=== PATIENT | male | born 1975 ===

== ENCOUNTER 2016-11-17 11:45 | Inpatient (IN) | payer OTHER ==
--- NOTE | 2016-11-17 13:02 | ED PDOC ---
Syncope/Near Syncope/Dizziness Time Seen by Provider: 11/17/16 12:30 Chief Complaint (Nursing): Syncope Chief Complaint (Provider): syncope History Per: Patient History/Exam Limitations: no limitations Additional Complaint(s): Jay Martins is a 41 year old male, with a previous medical history of diabetes and hypertension, who presents to the ED via EMS after a syncopal episode which happened prior to arrival. Patient reports prior to syncopal episode to feeling cold and light headed. He denies loss of consciousness and reports to remembering everything that happened. He denies any chest pain, coughing. shortness of breath, nausea, vomiting, numbness or tingling. Patient states earlier today having a root canal done 3 hours prior to arrival where he was given novocaine locally at [facility] in [place]. He reports feeling like his blood pressure dropped. Patient states to taking aleve and excedrin in the morning and reports to not eating anything all day for the procedure. [facility] [address] [place] [address] Past Medical History Reviewed: Historical Data, Nursing Documentation, Vital Signs Vital Signs: Last Vital Signs Temp 101.9 F H 11/17/16 11:51 Pulse Resp 20 11/17/16 11:51 BP Pulse Ox - Medical History PMH: No Chronic Diseases - Family History Family History: States: Unknown Family Hx - Home Medications Home Medications: Ambulatory Orders Medication Instructions Recorded Atorvastatin [Lipitor] 10 mg PO MWF 11/17/16 Lisinopril [Zestril] 5 mg PO HS 11/17/16 metFORMIN [glucOPHAGE] 500 mg PO BID 11/17/16 - Allergies Allergies/Adverse Reactions: Allergies Allergy/AdvReac Type Severity Reaction Status Date / Time No Known Allergies Allergy Verified 11/17/16 11:51 Review of Systems ROS Statement: Except As Marked, All Systems Reviewed And Found Negative Constitutional: Positive for: Chills. Negative for: Fever Cardiovascular: Negative for: Chest Pain Respiratory: Negative for: Cough, Shortness of Breath Gastrointestinal: Negative for: Nausea, Vomiting, Abdominal Pain Neurological: Positive for: Dizziness. Negative for: Numbness, Headache, Other (tingling ) Physical Exam - Reviewed Nursing Documentation Reviewed: Yes Vital Signs Reviewed: Yes - Physical Exam Appears: Positive for: Well, Non-toxic, No Acute Distress Head Exam: Positive for: ATRAUMATIC, NORMAL INSPECTION, NORMOCEPHALIC Skin: Positive for: Normal Color, Warm, DRY Eye Exam: Positive for: EOMI, Normal appearance, PERRL ENT: Positive for: Normal ENT Inspection, Other (open space in the right lower dentition with no edema, erythema bleeding or discharge. ) Neck: Positive for: Normal, Painless ROM, Supple Cardiovascular/Chest: Positive for: Regular Rate, Rhythm Respiratory: Positive for: CNT, Normal Breath Sounds Gastrointestinal/Abdominal: Positive for: Normal Exam, Bowel Sounds, Soft. Negative for: Tenderness Back: Positive for: Normal Inspection Extremity: Positive for: Normal ROM Neurologic/Psych: Positive for: Alert, Oriented - Laboratory Results Result Diagrams: 11/18/16 05:35 11/18/16 05:35 - ECG Interpretation Of ECG: ST @ 107, no ST-T changes. - Radiology X-Ray: Interpreted by Me X-Ray Interpretation: No Acute Disease Medical Decision Making Medical Decision Making: Initial Impression: Fever Initial Plan: * labs * reevaluation Pt meets criteria for severe sepsis, Clindamycin 600 mg IV administered. Scribe Attestation: Documented by Keren Hernandez, acting as a scribe for Keren Downing MD. Provider Scribe Attestation: All medical record entries made by the Scribe were at my direction and personally dictated by me. I have reviewed the chart and agree that the record accurately reflects my personal performance of the history, physical exam, medical decision making, and the department course for this patient. I have also personally directed, reviewed, and agree with the discharge instructions and disposition. Disposition - Clinical Impression Clinical Impression: Severe sepsis, Near syncope - Disposition Disposition Time: 15:19 Condition: STABLE - Pt Status Changed To: Hospital Disposition Of: Inpatient - Admit Certification Admit to Inpatient:: After my assessment, the patient will require hospitalization for at least two midnights. This is because of the severity of symptoms shown, intensity of services needed, and/or the medical risk in this patient being treated as an outpatient. - POA Present On Arrival: Surgical Site Infection
[2016-11-17] MEDS ORDERED: Sodium Chloride 0.9% 1,000 ML IV STA (13:18)
[2016-11-17 13:38] LABS: BASO % 0.3 % (0.0-2.0); HEMOGLOBIN 14.9 g/dL (12.0-18.0); LYMPH # 0.9 K/uL (1.0-4.3); LYMPH % 7.9 % (20.0-40.0); MEAN CORPUSCULAR HEMOGLOBIN 30.5 pg (27.0-31.0); MEAN CORPUSCULAR HGB CONC 32.8 g/dL (33.0-37.0); MONO # 0.2 K/uL (0.0-0.8); MONO % 1.9 % (0.0-10.0); NEUT # 10.5 K/uL (1.8-7.0); NEUT % 89.9 % (50.0-75.0); PLATELET COUNT 200 K/uL (130-400); RBC 4.89 Mil/uL (4.40-5.90); RED CELL DISTRIBUTION WIDTH 12.7 % (11.5-14.5); WHITE BLOOD COUNT 11.7 K/uL (4.8-10.8)
[2016-11-17 13:39] LABS: VENOUS BLOOD GAS BASE EXCESS -3.2 mmol/L (0.0-2.0); VENOUS BLOOD GAS PCO2 52 mmHg (40-60); VENOUS BLOOD GAS PO2 23 mm/Hg (30-55); VENOUS BLOOD PH 7.28 (7.32-7.43)
[2016-11-17 13:44] LABS: ALB/GLOB RATIO 1.5 (1.0-2.1); ALBUMIN 4.8 g/dL (3.5-5.0); ALT/SGPT 53 U/L (21-72); AST/SGOT 19 U/L (17-59); BLOOD UREA NITROGEN 8 mg/dl (9-20); CALCIUM 9.2 mg/dL (8.4-10.2); GFR AFRICAN-AMERICAN > 60; GFR NON-AFRICAN AMERICAN > 60
[2016-11-17 14:13] LABS: URINE BILIRUBIN NEGATIVE (NEGATIVE); URINE BLOOD NEGATIVE (NEGATIVE); URINE CLARITY SLIGHTY-CLOUDY (Clear); URINE COLOR YELLOW (YELLOW); URINE GLUCOSE (UA) NEG (Normal); URINE HYALINE CAST 0-2 /hpf (0-2); URINE LEUKOCYTE ESTERASE NEG Leu/uL (Negative); URINE NITRATE NEGATIVE (NEGATIVE); URINE PROTEIN 30 mg/dL (NEGATIVE)
[2016-11-17 14:42] LABS: LYMPHOCYTE 10 % (20-50); MONOCYTE 1 % (0-10); NEUTROPHIL 87 % (42-75); PLATELET ESTIMATE NORMAL (NORMAL); REACTIVE LYMPHOCYTES 2 % (0-0); TOTAL CELLS COUNTED 100
--- NOTE | 2016-11-17 14:47 | RAD ---
HISTORY: Fever COMPARISON: No prior. TECHNIQUE: Chest PA and lateral FINDINGS: LUNGS: Patchy right lower lobe opacity. Possible developing pneumonia. Followup advised. PLEURA: No significant pleural effusion identified. No pneumothorax apparent. CARDIOVASCULAR: Normal. OSSEOUS STRUCTURES: No significant abnormalities. VISUALIZED UPPER ABDOMEN: Normal. OTHER FINDINGS: None. IMPRESSION: Patchy right lower lobe opacity. Followup advised. Possible developing pneumonia.
[2016-11-17] MEDS ORDERED: Clindamycin 600 MG in Sodium Chloride 0.9% 100 ML IVPB STA (15:56)
[2016-11-17] MEDS: Oxycodone/Acetaminophen 5/325 mg Tab PO PRN (21:51)
[2016-11-17] MEDS: Sodium Chloride 0.45% 1,000 ML IV SCH (21:52)
[2016-11-18] MEDS: Oxycodone/Acetaminophen 5/325 mg Tab PO PRN (02:05)
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
[2016-11-18 06:42] LABS: BASO % 0.4 % (0.0-2.0); EOS % 0.1 % (0.0-4.0); HEMOGLOBIN 13.8 g/dL (12.0-18.0); LYMPH # 0.9 K/uL (1.0-4.3); MEAN CELL VOLUME 91.2 fl (80.0-94.0); MEAN CORPUSCULAR HGB CONC 33.9 g/dL (33.0-37.0); MEAN PLATELET VOLUME 10.8 fl (7.2-11.7); MONO % 9.3 % (0.0-10.0); NEUT # 8.8 K/uL (1.8-7.0); NEUT % 82.2 % (50.0-75.0); RBC 4.45 Mil/uL (4.40-5.90); RED CELL DISTRIBUTION WIDTH 12.5 % (11.5-14.5); WHITE BLOOD COUNT 10.7 K/uL (4.8-10.8)
[2016-11-18 06:43] LABS: ALB/GLOB RATIO 1.3 (1.0-2.1); ALBUMIN 3.7 g/dL (3.5-5.0); ALT/SGPT 53 U/L (21-72); AST/SGOT 23 U/L (17-59); BLOOD UREA NITROGEN 9 mg/dl (9-20); CALCIUM 8.7 mg/dL (8.4-10.2); GFR AFRICAN-AMERICAN > 60; GFR NON-AFRICAN AMERICAN > 60
--- NOTE | 2016-11-18 08:00 | CT ---
PROCEDURE: CT HEAD WITHOUT CONTRAST. HISTORY: Syncopal episode COMPARISON: None available. TECHNIQUE: Axial computed tomography images were obtained through the head/brain without intravenous contrast. Coronal and sagittal reconstructed images. Radiation dose: Total exam DLP = 876.43 mGy-cm. This CT exam was performed using one or more of the following dose reduction techniques: Automated exposure control, adjustment of the mA and/or kV according to patient size, and/or use of iterative reconstruction technique. FINDINGS: HEMORRHAGE: No intracranial hemorrhage. BRAIN: No mass effect or edema. No atrophy or chronic microvascular ischemic changes. VENTRICLES: Unremarkable. No hydrocephalus. CALVARIUM: Unremarkable. PARANASAL SINUSES: Unremarkable as visualized. No significant inflammatory changes. MASTOID AIR CELLS: Unremarkable as visualized. No inflammatory changes. OTHER FINDINGS: None. IMPRESSION: No acute intracranial abnormalities. No significant findings to account for the clinical presentation. Concordant results (preliminary interpretation) provided by [employer]. Procedure Completed: 19:05. Preliminary ([facility]) Report: Dictated and Authenticated: 19:57. Final Interpretation: 07:55. November 18, 2016.
--- NOTE | 2016-11-18 10:04 | CP.PCM.PN ---
Subjective - Date & Time of Evaluation Date of Evaluation: 11/18/16 Time of Evaluation: 10:04 - Subjective Subjective: FEELS WELL TODAY NO FEVER NO RECURRENCE OF NEAR SYNCOPE Objective - Vital Signs/Intake and Output Vital Signs (last 24 hours): Temp Pulse Resp BP Pulse Ox 98.6 F 77 18 109/67 97 11/18/16 08:00 11/18/16 08:00 11/18/16 08:00 11/18/16 08:00 11/18/16 08:00 Intake and Output: 11/18/16 11/18/16 06:59 18:59 Intake Total 900 Output Total 700 Balance 200 - Medications Medications: Current Medications Acetaminophen (Tylenol 325mg Tab) 650 mg PO Q4 PRN PRN Reason: Fever >100.4 F Last Admin: 11/18/16 09:33 Dose: 650 mg Atorvastatin Calcium (Lipitor) 10 mg PO MWF [facility] Last Admin: 11/18/16 09:34 Dose: 10 mg Sodium Chloride (Sodium Chloride 0.45%) 1,000 mls @ 60 mls/hr IV .[id number] [facility] Stop: 11/18/16 18:38 Last Admin: 11/17/16 21:52 Dose: 60 mls/hr Ceftriaxone Sodium 1 gm/ (Sodium Chloride) 100 mls @ 100 mls/hr IVPB DAILY [facility] Lisinopril (Zestril) 5 mg PO HS [facility] Last Admin: 11/17/16 23:21 Dose: 5 mg Metformin HCl (Glucophage) 500 mg PO BID [facility] Last Admin: 11/18/16 09:34 Dose: 500 mg Oxycodone/Acetaminophen (Percocet 5/325 Mg Tab) 1 tab PO Q6 PRN PRN Reason: Pain, moderate (4-7) Stop: 11/20/16 18:40 Last Admin: 11/18/16 02:05 Dose: 1 tab - Labs Labs: 11/18/16 05:35 11/18/16 05:35 - Constitutional Appears: No Acute Distress - Head Exam Head Exam: ATRAUMATIC, NORMAL INSPECTION, NORMOCEPHALIC - Eye Exam Eye Exam: EOMI, Normal appearance, PERRL Pupil Exam: NORMAL ACCOMODATION, PERRL - ENT Exam ENT Exam: Mucous Membranes Moist, Normal Exam - Neck Exam Neck Exam: Full ROM, Normal Inspection. absent: Lymphadenopathy - Respiratory Exam Respiratory Exam: Clear to Ausculation Bilateral, NORMAL BREATHING PATTERN - Cardiovascular Exam Cardiovascular Exam: REGULAR RHYTHM, +S1, +S2. absent: Murmur - GI/Abdominal Exam GI & Abdominal Exam: Soft, Normal Bowel Sounds. absent: Tenderness - Rectal Exam Rectal Exam: NORMAL INSPECTION - Extremities Exam Extremities Exam: Full ROM, Normal Capillary Refill, Normal Inspection. absent : Joint Swelling, Pedal Edema - Back Exam Back Exam: NORMAL INSPECTION - Neurological Exam Neurological Exam: Alert, Awake, CN II-XII Intact, Normal Gait, Oriented x3 - Psychiatric Exam Psychiatric exam: Normal Affect, Normal Mood - Skin Skin Exam: Dry, Intact, Normal Color, Warm Assessment and Plan - Assessment and Plan (Free Text) Assessment: NEAR SYNCOPE FEVER S/P DENTAL MANIPULATION DM HTN Plan: FOR ECHO TODAY T6O R/O VALVULAR HEART DZ CONTINUE IV ANTIBIOTICS D/C IN AM IF CLEARED BY ID
--- NOTE | 2016-11-18 11:29 | CARD ---
APPROVED REPORT EXAM: Two-dimensional and M-mode echocardiogram with Doppler and color Doppler. Other Information Quality : GoodRhythm : NSR INDICATION Infection: 2D DIMENSIONS IVSd1.01 (0.7-1.1cm)LVDd4.82 (3.9-5.9cm) LVOT Diameter1.93 (1.8-2.4cm)PWd0.94 (0.7-1.1cm) LVDs2.67 (2.5-4.0cm)FS (%) 44.6 % M-Mode DIMENSIONS Left Atrium (MM)3.97 (2.5-4.0cm)IVSd0.76 (0.7-1.1cm) Aortic Root3.26 (2.2-3.7cm)LVDd5.71 (4.0-5.6cm) Aortic Cusp Exc.1.97 (1.5-2.0cm)PWd0.76 (0.7-1.1cm) FS (%) 41 %LVDs3.35 (2.0-3.8cm) Mitral Valve MV E Jbikoajx54.4cm/sMV DECEL [id number] A Xakrgbyo19.6cm/s MV GCW75sfA/A ratio1.4MVA (PHT)4.95cm2 TDI Lateral E' Peak V13.59cm/sMedial E' Peak V10.56cm/sE/Lateral E'5.5 E/Medial E'7.0 Pulmonary Valve PV Peak Rctbdxhu818.6cm/s LEFT VENTRICLE The left ventricle is normal size. There is normal left ventricular wall thickness. The left ventricular function is normal. The left ventricular ejection fraction is 60% There is normal LV segmental wall motion. The left ventricular diastolic function is normal. No left ventricle thrombus noted on this study. There is no ventricular septal defect visualized. There is no left ventricular aneurysm. There is no mass noted in the left ventricle. RIGHT VENTRICLE The right ventricle is normal size. There is normal right ventricular wall thickness. The right ventricular systolic function is normal. ATRIA The left atrium size is normal. The right atrium size is normal. The interatrial septum is intact with no evidence for an atrial septal defect. AORTIC VALVE The aortic valve is normal in structure and function. No aortic regurgitation is present. There is no aortic valvular stenosis. There is no aortic valvular vegetation. MITRAL VALVE The mitral valve is normal in structure and function. There is no evidence of mitral valve prolapse. There is no mitral valve stenosis. There is no mitral valve regurgitation noted. TRICUSPID VALVE The tricuspid valve is normal in structure and function. There is no tricuspid valve regurgitation noted. There is no tricuspid valve prolapse or vegetation. There is no tricuspid valve stenosis. PULMONIC VALVE The pulmonary valve is normal in structure and function. There is no pulmonic valvular regurgitation. There is no pulmonic valvular stenosis. GREAT VESSELS The aortic root is normal in size. The ascending aorta is normal in size. The IVC is normal in size and collapses >50% with inspiration. PERICARDIAL EFFUSION The pericardium appears normal. There is no pleural effusion. <Conclusion> Normal Echocardiogram
[2016-11-18] MEDS: Sodium Chloride 0.45% 1,000 ML IV SCH (11:50)
--- NOTE | 2016-11-18 18:03 | CARD ---
APPROVED REPORT EKG Measurement Heart [id number] ME 162P6 [id number] <Conclusion> Sinus tachycardia Possible Left atrial enlargement Incomplete right bundle branch block Left posterior fascicular block Possible Inferior infarct, age undetermined Abnormal ECG
--- NOTE | 2016-11-18 20:35 | CP.PCM.PN ---
Subjective - Date & Time of Evaluation Date of Evaluation: 11/18/16 Time of Evaluation: 20:27 - Subjective Subjective: I D NOTE PATIENT EXAMINED ,HISTORY NOTED LABS REVIEWED WILL TREAT AGGRESSIVELY OVERNIGHT IF CINICALLY STABLE TOMORROW ,COULD CONSIDER DISCHARGE ON AUGMENTIN 875MG PO BID X 2 WEEKS FULL CONSULT DICTATED Objective - Vital Signs/Intake and Output Vital Signs (last 24 hours): Temp Pulse Resp BP Pulse Ox 99.1 F 80 20 119/79 97 11/18/16 19:14 11/18/16 19:14 11/18/16 19:14 11/18/16 19:14 11/18/16 19:14 Intake and Output: 11/18/16 11/19/16 18:59 06:59 Intake Total 2320 Balance 2320 - Medications Medications: Current Medications Acetaminophen (Tylenol 325mg Tab) 650 mg PO Q4 PRN PRN Reason: Fever >100.4 F Last Admin: 11/18/16 09:33 Dose: 650 mg Acetaminophen (Tylenol 325mg Tab) 650 mg PO Q6 PRN PRN Reason: Pain, Mild (1-3) Atorvastatin Calcium (Lipitor) 10 mg PO MWF [facility] Last Admin: 11/18/16 09:34 Dose: 10 mg Clindamycin Phosphate 600 mg/ (Sodium Chloride) 104 mls @ 104 mls/hr IVPB Q8 [facility] Piperacillin Sod/Tazobactam (Sod 3.375 gm/ Sodium Chloride) 100 mls @ 100 mls/ hr IVPB Q6 [facility] Lisinopril (Zestril) 5 mg PO HS [facility] Last Admin: 11/17/16 23:21 Dose: 5 mg Metformin HCl (Glucophage) 500 mg PO BID [facility] Last Admin: 11/18/16 17:02 Dose: 500 mg Oxycodone/Acetaminophen (Percocet 5/325 Mg Tab) 1 tab PO Q6 PRN PRN Reason: Pain, moderate (4-7) Stop: 11/20/16 18:40 Last Admin: 11/18/16 02:05 Dose: 1 tab - Labs Labs: 11/18/16 05:35 11/18/16 05:35
[2016-11-18] MEDS: Piperacillin/Tazobact 3.375 GM in Sodium Chloride 0.9% 100 ML IVPB SCH (21:35)
[2016-11-19] MEDS: Clindamycin 600 MG in Sodium Chloride 0.9% 100 ML IVPB SCH ×2 (00:19→09:00)
[2016-11-19] MEDS: Piperacillin/Tazobact 3.375 GM in Sodium Chloride 0.9% 100 ML IVPB SCH ×2 (04:51→09:01)
[2016-11-19] MEDS: Oxycodone/Acetaminophen 5/325 mg Tab PO PRN (05:00)
[2016-11-19 05:16] VITALS: O2SAT 98
[2016-11-19 08:11] VITALS: BP 123/77; PULSE 75; RESP 18; TEMP 98.5
--- NOTE | 2016-11-19 09:21 | CP.PCM.DIS ---
Provider - Provider Date of Admission: 11/17/16 15:19 Attending physician: Vijay Parks MD Time Spent in preparation of Discharge (in minutes): 35 Diagnosis - Discharge Diagnosis (1) Dental abscess Status: Acute (2) Hypertension Status: Acute (3) Diabetes 1.5, managed as type 2 Status: Acute (4) Near syncope Status: Acute (5) Severe sepsis Status: Acute Hospital Course - Lab Results Lab Results: Most Recent Lab Values WBC 10.7 K/uL (4.8-10.8) 11/18/16 05:35 RBC 4.45 Mil/uL (4.40-5.90) 11/18/16 05:35 Hgb 13.8 g/dL (12.0-18.0) 11/18/16 05:35 Hct 40.6 % (35.0-51.0) 11/18/16 05:35 MCV 91.2 fl (80.0-94.0) 11/18/16 05:35 MCH 31.0 pg (27.0-31.0) 11/18/16 05:35 MCHC 33.9 g/dL (33.0-37.0) 11/18/16 05:35 RDW 12.5 % (11.5-14.5) 11/18/16 05:35 Plt Count 146 K/uL (130-400) 11/18/16 05:35 MPV 10.8 fl (7.2-11.7) 11/18/16 05:35 Neut % (Auto) 82.2 % (50.0-75.0) H 11/18/16 05:35 Lymph % (Auto) 8.0 % (20.0-40.0) L 11/18/16 05:35 [place] % (Auto) 9.3 % (0.0-10.0) 11/18/16 05:35 Eos % (Auto) 0.1 % (0.0-4.0) 11/18/16 05:35 Baso % (Auto) 0.4 % (0.0-2.0) 11/18/16 05:35 Neut # 8.8 K/uL (1.8-7.0) H 11/18/16 05:35 Lymph # 0.9 K/uL (1.0-4.3) L 11/18/16 05:35 [place] # 1.0 K/uL (0.0-0.8) H 11/18/16 05:35 Eos # 0.0 K/uL (0.0-0.7) 11/18/16 05:35 Baso # 0.0 K/uL (0.0-0.2) 11/18/16 05:35 Neutrophils % (Manual) 87 % (42-75) H 11/17/16 13:32 Lymphocytes % (Manual) 10 % (20-50) L 11/17/16 13:32 Reactive Lymphs % 2 % (0-0) H 11/17/16 13:32 Monocytes % (Manual) 1 % (0-10) 11/17/16 13:32 Platelet Estimate Normal (NORMAL) 11/17/16 13:32 RBC Morphology Normal (NORMAL) 11/17/16 13:32 ESR 18 mm/hr (0-15) H 11/18/16 05:35 pO2 23 mm/Hg (30-55) L 11/17/16 13:17 VBG pH 7.28 (7.32-7.43) L 11/17/16 13:17 VBG pCO2 52 mmHg (40-60) 11/17/16 13:17 VBG HCO3 20.6 mmol/L 11/17/16 13:17 VBG Total CO2 26.0 mmol/L (22-28) 11/17/16 13:17 VBG O2 Sat (Calc) 43.8 % (40-65) 11/17/16 13:17 VBG Base Excess -3.2 mmol/L (0.0-2.0) L 11/17/16 13:17 VBG Potassium 4.0 mmol/L (3.6-5.2) 11/17/16 13:17 Sodium 136.0 mmol/L (132-148) 11/17/16 13:17 Chloride 101.0 mmol/L (98-107) 11/17/16 13:17 Glucose 130 mg/dL (75-110) H 11/17/16 13:17 Lactate 5.7 mmol/L (0.7-2.1) H* 11/17/16 13:17 FiO2 21.0 % 11/17/16 13:17 Blood Gas Comments Vbg 11/17/16 13:17 Crit Value Called To Joshua madison r.n. 11/17/16 13:17 Crit Value Called By Sonia 11/17/16 13:17 Crit Value Read Back Y 11/17/16 13:17 Blood Gas Notified Time 1338 11/17/16 13:17 Sodium 139 mmol/l (132-148) 11/18/16 05:35 Potassium 3.6 MMOL/L (3.6-5.0) 11/18/16 05:35 Chloride 106 mmol/L (98-107) 11/18/16 05:35 Carbon Dioxide 23 mmol/L (22-30) 11/18/16 05:35 Anion Gap 14 (10-20) 11/18/16 05:35 BUN 9 mg/dl (9-20) 11/18/16 05:35 Creatinine 0.8 mg/dL (0.8-1.5) 11/18/16 05:35 Est GFR ( Amer) > 60 11/18/16 05:35 Est GFR (Non-Af Amer) > 60 11/18/16 05:35 POC Glucose (mg/dL) 137 mg/dL (65-110) H 11/19/16 05:52 Random Glucose 153 mg/dL (75-110) H 11/18/16 05:35 Lactic Acid 0.8 MMOL/L (0.7-2.1) 11/19/16 05:30 Calcium 8.7 mg/dL (8.4-10.2) 11/18/16 05:35 Total Bilirubin 1.3 mg/dl (0.2-1.3) 11/18/16 05:35 AST 23 U/L (17-59) 11/18/16 05:35 ALT 53 U/L (21-72) 11/18/16 05:35 Alkaline Phosphatase 43 U/L (38-126) 11/18/16 05:35 Total Protein 6.5 G/DL (6.3-8.2) 11/18/16 05:35 Albumin 3.7 g/dL (3.5-5.0) 11/18/16 05:35 Globulin 2.8 gm/dL (2.2-3.9) 11/18/16 05:35 Albumin/Globulin Ratio 1.3 (1.0-2.1) 11/18/16 05:35 Venous Blood Potassium 4.0 mmol/L (3.6-5.2) 11/17/16 13:17 Urine Color Yellow (YELLOW) 11/17/16 14:02 Urine Clarity Slighty-cloudy (Clear) 11/17/16 14:02 Urine pH 6.0 (5.0-8.0) 11/17/16 14:02 Ur Specific [place] 1.016 (1.003-1.030) 11/17/16 14:02 Urine Protein 30 mg/dL (NEGATIVE) 11/17/16 14:02 Urine Glucose (UA) Neg mg/dL (Normal) 11/17/16 14:02 Urine Ketones Negative mg/dL (NEGATIVE) 11/17/16 14:02 Urine Blood Negative (NEGATIVE) 11/17/16 14:02 Urine Nitrate Negative (NEGATIVE) 11/17/16 14:02 Urine Bilirubin Negative (NEGATIVE) 11/17/16 14:02 Urine Urobilinogen 2.0 mg/dL (0.2-1.0) 11/17/16 14:02 Ur Leukocyte Esterase Neg [place]/uL (Negative) 11/17/16 14:02 Urine RBC (Auto) 2 /hpf (0-3) 11/17/16 14:02 Urine Microscopic WBC 4 /hpf (0-5) 11/17/16 14:02 Hyaline Casts 0-2 /hpf (0-2) 11/17/16 14:02 - Hospital Course Hospital Course: improved no recurrence of fever or near syncope all workup non-revealing Discharge Exam - Head Exam Head Exam: ATRAUMATIC, NORMAL INSPECTION, NORMOCEPHALIC - Eye Exam Eye Exam: EOMI, Normal appearance, PERRL Pupil Exam: NORMAL ACCOMODATION, PERRL - GI/Abdominal Exam GI & Abdominal Exam: Normal Bowel Sounds - Rectal Exam Rectal Exam: NORMAL INSPECTION - Neurological Exam Neurological exam: Alert, CN II-XII Intact, Normal Gait, Oriented x3, Reflexes Normal - Psychiatric Exam Psychiatric exam: Normal Affect, Normal Mood - Skin Skin Exam: Dry, Intact, Normal Color, Warm Discharge Plan - Follow Up Plan Condition: STABLE Disposition: HOME/ ROUTINE Patient education suggested?: Yes Instructions: Syncope (DC), Sepsis (GEN) Additional Instructions: d/c home today on augmentin 875 mg bid x 1 week follow up with dr shannen ferreira
--- NOTE | 2016-11-23 13:57 | PQF PNEUMO ---
Dr. Parks History and Physical documented pneumonia. After study was pneumonia ruled in or out? This form is a permanent part of the medical record Clarification of your documentation is requested to better reflect the severity of illness and intensity of treatment of your patient. Indicators present [x] Documented diagnosis of pneumonia [x] X-ray findings: [] Positive Sputum cultures [] Cough w/ fever [] Abnormal lungs sounds [] Poor gag reflex [] Speech consults/swallow evaluation [] Vent dependence [] Other: [] Location in the medical record that reflects the above clinical findings: [] Treatment Provided: [] PHYSICIAN'S RESPONSE Based on your medical judgment of the clinical indicators outlined above, are you treating this patient for a known or suspected: [] Aspiration pneumonia [] Community acquired pneumonia [] Ventilator associated pneumonia [] Viral pneumonia [] Bacterial pneumonia Please specify organism: [] [] Other, please indicate [] If Unable to Determine, please check the box, sign and date. Present On Admission (POA) Indicator: [] Present at the time of admission [] Not present at the time of admission [] Clinically Undetermined In responding to this query, please exercise your independent professional judgment. The fact that a question is asked does not imply that any particular answer is desired or expected. Thank you for your clarification on this documentation. If you have any questions please call:[ ] * Thank you, [ ]Ale Hurst complex care nurse practitioner NICK
== END 2016-11-19 11:00 | disposition home or self-care (01) | DRG 862 ==
LOC: H.ER 11:45 → H.ERHOLD 15:19 → H.TEL 21:32
PROVIDERS: ADMIT Internal Medicine Pulmonary Disease; ATTEND Internal Medicine Pulmonary Disease
DX: T81.4XXA Infection following a procedure, initial encounter (principal); A41.9 Sepsis, unspecified organism; R65.20 Severe sepsis without septic shock; E87.2 Acidosis; K04.7 Periapical abscess without sinus; E11.9 Type 2 diabetes mellitus without complications; I10 Essential (primary) hypertension; F17.210 Nicotine dependence, cigarettes, uncomplicated; R55 Syncope and collapse; Y83.8 Other surgical procedures as the cause of abnormal reaction of the patient, or of later complication, without mention of misadventure at the time of the procedure